=== PATIENT | female | born 1950 | race Caucasian/White ===

== ENCOUNTER 2017-01-04 16:40 | Emergency (ER) | payer MEDICARE, MEDICAID ==
[~2017-01-04] VITALS: Ht 165.1 cm; Wt 73.3 kg
[~2017-01-04 16:40] MED LIST: ATOR40TA78 PO; FAMO-79 PO; LANS30CA PO; LISI-170 PO; METH4TAB2 PO; OMEP-110 PO; SUCR1TAB PO
[2017-01-04 16:41] VITALS: BP 105/65
[2017-01-04] MEDS ORDERED: MORPHINE SULFATE 4 MG/ML, 1ML ONE (17:28)
[2017-01-04] MEDS ORDERED: PIPERACILLIN/TAZO/PMX 3.375GM 50 ML ONE (17:28)
== END 2017-01-04 18:25 | disposition home or self-care (01) ==
LOC: ED 18:19
DX: M79.642 Pain in left hand (principal); M79.641 Pain in right hand; K21.9 Gastro-esophageal reflux disease without esophagitis; E78.5 Hyperlipidemia, unspecified; I10 Essential (primary) hypertension; Z90.49 Acquired absence of other specified parts of digestive tract; Z90.710 Acquired absence of both cervix and uterus; Z88.8 Allergy status to other drugs, medicaments and biological substances
CPT/HCPCS: 99284